=== PATIENT | male | born 1935 | race Caucasian/White ===

== ENCOUNTER 2017-10-29 18:50 | Emergency (ER) | payer OTHER ==
[~2017-10-29] VITALS: Ht 160 cm; Wt 90.7 kg
[2017-10-29] MEDS ORDERED: COZAAR50 MG (19:03)
[2017-10-29] MEDS ORDERED: METFORMIN HCL500 MG (19:03)
[2017-10-29] MEDS ORDERED: SIMVASTATIN40 MG (19:03)
[2017-10-29] MEDS ORDERED: ASPIR 8181 MG (19:03)
== END 2017-10-29 20:31 | disposition home or self-care (01) ==
LOC: ER 18:50
DX: M54.89 Other dorsalgia (principal); R06.02 Shortness of breath

== ENCOUNTER → 2017-11-06 | Emergency (ER) | payer OTHER ==
[~2017-11-06] VITALS: Ht 160 cm; Wt 90.7 kg
[~2017-11-06] MED LIST: ARICEPT5 MG; ASPIR 8181 MG; BETAMETHASONE D15 GM; BIOTIN1000 MCG; COZAAR50 MG; LASIX20 MG; METFORMIN HCL500 MG; MOMETASONE FUR; PROSCAR5 MG; SILVADENE20 GM; SIMVASTATIN40 MG; TRIAMCINOLONE AC5 GM
== END | disposition home or self-care (01) ==
LOC: ER 12:20
DX: L50.8 Other urticaria (principal)

== ENCOUNTER 2019-09-11 22:22 | Emergency (ER) | payer OTHER ==
[~2019-09-11] VITALS: Ht 160 cm; Wt 82.6 kg
[2019-09-11] MEDS ORDERED: LASIX20 MG PO (22:49)
[2019-09-11] MEDS ORDERED: LEXAPRO5 MG PO (22:50)
[2019-09-11] MEDS ORDERED: ATORVASTATIN CA40 MG PO (22:50)
[2019-09-11] MEDS ORDERED: CLONAZEPAM0.5 MG PO (22:51)
[2019-09-11] MEDS ORDERED: XARELTO20 MG PO (22:51)
[2019-09-11] MEDS ORDERED: PEPCID AC10 MG PO (22:52)
[2019-09-11] MEDS ORDERED: EXELON1 EAC1 TD (22:52)
== END 2019-09-12 20:52 | disposition home or self-care (01) ==
LOC: ER 22:22
DX: I50.9 Heart failure, unspecified (principal); R06.02 Shortness of breath; L50.8 Other urticaria

== ENCOUNTER 2019-09-26 15:53 | Outpatient (CLI) | payer OTHER ==
[~2019-09-26 15:53] MED LIST changes: +ATORVASTATIN CA40 MG PO; +CLONAZEPAM0.5 MG PO; +EXELON1 EAC1 TD; +LASIX20 MG PO; +LEXAPRO5 MG PO; +PEPCID AC10 MG PO; +XARELTO20 MG PO
== END 2019-09-26 15:55 | disposition home or self-care (01) ==
LOC: RAD 15:53
DX: I10 Essential (primary) hypertension (principal); I42.8 Other cardiomyopathies